=== PATIENT | female | born 1945 | race Caucasian/White ===

== ENCOUNTER 2016-09-23 16:47 | Emergency (ER) | payer OTHER ==
[~2016-09-23] VITALS: Ht 162.6 cm; Wt 76.3 kg
[~2016-09-23 16:47] MED LIST: BACTRIM,SEPT1 TABLET PO; BENICAR20 MG PO; CLINDAMYCIN HC300 MG PO; DILAUDID2 MG PO; GABAPENTIN300 MG PO; LEVAQUIN750 MG PO; LOSARTAN POTASS50 MG PO; SIMVASTATIN10 MG PO; TEGRETOL200 MG PO; TRAMADOL HCL50 MG PO; TRAZODONE HCL50 MG PO; VICODIN 5-3001 EACH PO
[2016-09-23 19:38] LABS: BASOPHIL COUNT 0.1 K/uL (0-0.1); EOSINOPHIL (%) 1.6 % (0-5); EOSINOPHIL COUNT 0.1 K/uL (0-0.3); HEMATOCRIT 34.9 % (36.0-46.0); IMMATURE GRANULOCYTE (%) 0.3 % (0.0-0.7); INSTRUMENT ABS NEUTROPHIL CT 3.8 K/uL; LYMPHOCYTE COUNT 1.5 K/uL (1.0-2.8); MCH 32.4 PG (29.0-34.0); MCHC 36.4 G/DL (30.0-36.0); MEAN PLAT.VOLUME 8.9 uM^3 (9.5-12.4); MONOCYTE (%) 13.8 % (3-12); MONOCYTE COUNT 0.9 K/uL (0-0.8); NEUTROPHIL (%) 59.9 % (45-76); NEUTROPHIL COUNT 3.8 K/uL (1.8-6.4); PLATELET COUNT 329 K/uL (156-360); RBC DIS.WIDTH-CV 12.2 % (11.8-14.6); RBC DIS.WIDTH-SD 39.9 % (39-53); RED BLOOD COUNT 3.92 M/uL (3.80-5.20); WHITE BLOOD COUNT 6.4 K/uL (4.1-10.2)
[2016-09-23 19:47] LABS: CHLORIDE 99 mEq/L (99-109); POTASSIUM 3.8 mEq/L (3.7-5.4); SODIUM 129 mEq/L (136-147)
[2016-09-23 19:49] LABS: GLUCOSE 95 mg/dL (70-99)
[2016-09-23 19:50] LABS: ANION GAP 11 MEQ/L (2-14)
[2016-09-23 19:51] LABS: TOTAL BILIRUBIN 0.2 mg/dL (0.0-1.0)
[2016-09-23 19:53] LABS: ALKALINE PHOSPHATASE 93 IU/L (3-129); GFR ESTIMATE (CALCULATED) 52 mL/min/
[2016-09-23 19:54] LABS: UREA NITROGEN (BUN) 20 mg/dL (9-23)
[2016-09-23 19:56] LABS: CREATINE KINASE 211 IU/L (1-294)
[2016-09-23 21:17] LABS: ADD MIUA? YES; BILIRUBIN NEGATIVE; BLOOD SMALL; COLOR YELLOW ((YELLOW)); GLUCOSE (STRIP) NEGATIVE; KETONES NEGATIVE; LEUKOCYTES SMALL; NITRITE POSITIVE; PROTEIN (STRIP) NEGATIVE; SPECIFIC GRAVITY 1.025 (1.000-1.030); UROBILINOGEN 0.2 MG/DL (0.2-1.0)
[2016-09-23 21:23] LABS: BACTERIA RARE /HPF; EPITHELIAL CELLS RARE /HPF; MUCUS NONE SEEN /LPF; RED BLOOD CELLS 0-5 /HPF (0-5); UCUL ADDED? NO
[2016-09-23] MEDS ORDERED: NORCO 5/3251 TABLET PO (22:25)
[2016-09-23] MEDS ORDERED: KEFLEX500 MG PO (22:25)
[2016-09-23 22:38] VITALS: BP 162/99
== END 2016-09-23 22:38 | disposition home or self-care (01) ==
LOC: EME 16:47
PROVIDERS: Emergency Medicine
DX: N39.0 Urinary tract infection, site not specified (principal); M25.552 Pain in left hip; E78.5 Hyperlipidemia, unspecified; I10 Essential (primary) hypertension; K21.9 Gastro-esophageal reflux disease without esophagitis
CPT/HCPCS: 74177; 80053; 81003; 82550; 85025; 93971; 99281; 99284; J3010; J7030

== ENCOUNTER 2017-02-17 01:19 | Emergency (ER) | payer OTHER ==
[~2017-02-17] VITALS: Ht 160 cm; Wt 77.2 kg
[~2017-02-17 01:19] MED LIST changes: +KEFLEX500 MG PO; +NORCO 5/3251 TABLET PO
[2017-02-17 02:01] LABS: BASOPHIL COUNT 0.1 K/uL (0-0.1); EOSINOPHIL COUNT 0.1 K/uL (0-0.3); HEMATOCRIT 33.6 % (36.0-46.0); IMMATURE GRANULOCYTE (%) 0.4 % (0.0-0.7); INSTRUMENT ABS NEUTROPHIL CT 2.4 K/uL; LYMPHOCYTE COUNT 1.5 K/uL (1.0-2.8); MCH 31.9 PG (29.0-34.0); MCHC 35.4 G/DL (30.0-36.0); MCV 90.1 FL (83-99); MEAN PLAT.VOLUME 9.1 uM^3 (9.5-12.4); MONOCYTE (%) 16.8 % (3-12); MONOCYTE COUNT 0.8 K/uL (0-0.8); NEUTROPHIL (%) 49.5 % (45-76); NEUTROPHIL COUNT 2.4 K/uL (1.8-6.4); PLATELET COUNT 296 K/uL (156-360); RBC DIS.WIDTH-SD 39.8 % (39-53); RED BLOOD COUNT 3.73 M/uL (3.80-5.20); WHITE BLOOD COUNT 4.9 K/uL (4.1-10.2)
[2017-02-17 02:10] LABS: CHLORIDE 102 mEq/L (99-109); POTASSIUM 3.8 mEq/L (3.7-5.4); SODIUM 128 mEq/L (136-147)
[2017-02-17 02:12] LABS: GLUCOSE 112 mg/dL (70-99)
[2017-02-17 02:13] LABS: ANION GAP 6 MEQ/L (2-14)
[2017-02-17 02:14] LABS: TOTAL BILIRUBIN 0.2 mg/dL (0.0-1.0)
[2017-02-17 02:15] LABS: ALKALINE PHOSPHATASE 84 IU/L (3-129)
[2017-02-17 02:16] LABS: GFR ESTIMATE (CALCULATED) > 59 mL/min/
[2017-02-17 02:17] LABS: UREA NITROGEN (BUN) 19 mg/dL (9-23)
[2017-02-17 02:24] LABS: TROP-I INTERPRETATION NEGATIVE; TROPONIN-I < 0.01 ng/mL (0.0-0.30)
[2017-02-17 02:26] LABS: D-DIMER ELISA < 150.00 ng/mLDDU (<230)
[2017-02-17 04:38] LABS: TROP-I INTERPRETATION NEGATIVE; TROPONIN-I < 0.01 ng/mL (0.0-0.30)
[2017-02-17 05:06] VITALS: BP 168/82
== END 2017-02-17 05:08 | disposition home or self-care (01) ==
LOC: EME 01:19
PROVIDERS: Emergency Medicine
DX: R06.00 Dyspnea, unspecified (principal); E87.1 Hypo-osmolality and hyponatremia; I10 Essential (primary) hypertension; E78.5 Hyperlipidemia, unspecified; K21.9 Gastro-esophageal reflux disease without esophagitis
CPT/HCPCS: 71020; 80053; 83880; 84484; 85025; 85379; 93005; 99281; 99285